=== PATIENT | male | born 1975 | race Caucasian/White ===

== ENCOUNTER 2017-01-28 11:39 | Emergency (ER) | payer OTHER ==
[~2017-01-28] VITALS: Ht 185.4 cm; Wt 117.8 kg
[2017-01-28] MEDS ORDERED: SODIUM CHLORIDE FLUSH 10ML SYR IVF ONE (12:30)
[2017-01-28 12:35] LABS: HEMATOCRIT 44.1 % (39.2-51.8); HEMOGLOBIN 14.9 g/dL (13.7-18.0)
[2017-01-28 12:46] LABS: ASPARTATE AMINO TRANSFERASE 32 U/L (15-37); BLOOD UREA NITROGEN 14 mg/dL (7-18)
[2017-01-28] MEDS ORDERED: OMNIPAQUE 350 MG/ML, 100ML BOTTLE ONE (13:28)
[2017-01-28] MEDS ORDERED: ONDANSETRON ODT 4 MG ONE (13:37)
[2017-01-28] MEDS ORDERED: KETOROLAC 30 MG/1 ML ONE (13:37)
[2017-01-28] MEDS ORDERED: KETOROLAC 30 MG/1 ML IM ONE (14:00)
[2017-01-28] MEDS ORDERED: ONDANSETRON ODT 4 MG PO ONE (14:00)
[2017-01-28 14:46] VITALS: BP 154/90
== END 2017-01-28 14:46 | disposition home or self-care (01) ==
LOC: ED 13:06
DX: N23 Unspecified renal colic (principal); R31.9 Hematuria, unspecified
CPT/HCPCS: 36415; 74177; 80053; 81001; 83605; 85025; 96372; 99285; J1885; Q0162; Q9967

== ENCOUNTER 2017-01-31 07:41 | Emergency (ER) | payer OTHER ==
[~2017-01-31] VITALS: Ht 185.4 cm; Wt 118.3 kg
[2017-01-31 08:22] LABS: HEMATOCRIT 42.7 % (39.2-51.8); HEMOGLOBIN 14.4 g/dL (13.7-18.0); WHITE BLOOD COUNT 7.3 x10^3/uL (3.4-10)
[2017-01-31 08:41] LABS: ASPARTATE AMINO TRANSFERASE 27 U/L (15-37); BLOOD UREA NITROGEN 18 mg/dL (7-18)
[2017-01-31 09:42] VITALS: BP 133/92
== END 2017-01-31 09:44 | disposition home or self-care (01) ==
LOC: ED 08:11
DX: N20.1 Calculus of ureter (principal); K64.4 Residual hemorrhoidal skin tags
CPT/HCPCS: 36415; 80053; 81001; 83690; 85025; 87086; 99284